=== PATIENT | male | born 1955 | race African-American/Black ===

== ENCOUNTER 2017-01-10 18:46 | Emergency (ER) | payer MEDICARE ==
[~2017-01-10] VITALS: Ht 170.2 cm; Wt 113.4 kg
[2017-01-10] MEDS ORDERED: ASPIRIN 325 MG TABLET PO ONE (19:15)
[2017-01-10] MEDS ORDERED: FAMOTIDINE 20 MG TABLET. PO ONE (19:30)
[2017-01-10] MEDS ORDERED: LIDO:MAALOX:DONNATAL 1:1:1 15 ML SINGLE DOSE SWSW ONE (19:30)
[2017-01-10 19:33] LABS: BASO # 0.1 x10^3/uL (0.0-0.2); BASO % 1 % (0-3); EOS % 3 % (0-3); HEMATOCRIT 43.7 % (39.0-53.0); HEMOGLOBIN 14.8 g/dL (13.0-17.5); LYMPH # 2.7 x10^3/uL (1.0-4.8); LYMPH % 37 % (24-48); MEAN CORPUSCULAR HEMOGLOBIN 30 pg (25-35); MEAN CORPUSCULAR HGB CONC 34 g/dL (31-37); MEAN CORPUSCULAR VOLUME 89 fL (79-100); MONO % 11 % (0-9); NEUT % 48 % (31-73); PLATELET COUNT 240 x10^3/uL (140-400); RED CELL DISTRIBUTION WIDTH 13.8 % (11.5-14.5); WHITE BLOOD COUNT 7.1 x10^3/uL (4.0-11.0)
[2017-01-10 19:52] LABS: CALCIUM 8.8 mg/dL (8.5-10.1); CREATININE 1.5 mg/dL (0.7-1.3); GFR 57.6; POTASSIUM 3.3 mmol/L (3.5-5.1)
[2017-01-10 20:00] LABS: BARBITURATES NEG (NEG); BENZODIAZEPINES NEG (NEG); CANNABINOIDS NEG (NEG); COCAINE NEG (NEG); METHADONE NEG (NEG); OPIATES NEG (NEG); PHENCYCLIDINE NEG (NEG)
[2017-01-10 20:11] LABS: ETHANOL, URINE NEG (NEG)
--- NOTE | 2017-01-10 20:22 | PHYS DOC ---
Past Medical History Past Medical History: CAD, High Cholesterol, Hypertension, [place], Other Additional Past Medical Histor: back pain Past Surgical History: Cervical Fusion, Knee Replacement, Lumbar Laminectomy Additional Past Surgical Histo: stent placement Alcohol Use: None Drug Use: None Adult General Chief Complaint Chief Complaint: CHEST PAIN HPI HPI Patient is a 61 year old male who presents with for 3 days of central chest and epigastric pain, starting at rest, constant, nonradiating. Feels slight abdominal bloating also. No aggravating or alleviating factors. Has tried tums with minimal to no relief. Thought this was acid reflux, but then states this feels similar to when he needed a cardiac stent years ago after a stress test. He denies n/v, f/c, cough, dyspnea, palpitations, diaphoresis, bloody or dark stools, exertional symptoms, orthopnea, lightheadedness, back pain. Review of Systems Review of Systems Constitutional: Denies fever or chills [] Eyes: Denies change in visual acuity, redness, or eye pain [] HENT: Denies nasal congestion or sore throat [] Respiratory: Denies cough or shortness of breath [] Cardiovascular: No additional information not addressed in HPI [] GI: Denies nausea, vomiting, bloody stools or diarrhea [] : Denies dysuria or hematuria [] Musculoskeletal: Denies back pain or joint pain [] Integument: Denies rash or skin lesions [] Neurologic: Denies headache, focal weakness or sensory changes [] Endocrine: Denies polyuria or polydipsia [] Current Medications Current Medications Current Medications Medications (Trade) Dose Ordered Sig/[facility] Start Time Stop Time Status Last Admin Dose Admin Aspirin (Leo Aspirin) 325 mg 1X ONCE 01/10/17 19:15 01/10/17 19:21 DC Famotidine (Pepcid) 20 mg 1X ONCE 01/10/17 19:30 01/10/17 19:31 DC 01/10/17 19:27 20 MG Multi-Ingredient Mouthwash/Gargle (Gi Cocktail Single Dose) 15 ml 1X ONCE 01/10/17 19:30 01/10/17 19:31 DC 01/10/17 19:27 15 ML Allergies Allergies Allergies Coded Allergies Type Severity Reaction Last Updated Verified hydrocodone Allergy Intermediate Rash 11/09/14 Yes tramadol Allergy Intermediate Rash 11/09/14 Yes Physical Exam Physical Exam Constitutional: Well developed, well nourished, no acute distress, non-toxic appearance. [] HENT: Normocephalic, atraumatic, bilateral external ears normal, oropharynx moist, nose normal. [] Eyes: PERRLA, EOMI. [] Neck: Normal range of motion, supple. [] Cardiovascular:Heart rate regular rhythm [] Lungs & Thorax: Bilateral breath sounds clear to auscultation. No chest wall pain or rash [] Abdomen: Bowel sounds normal, soft, no tenderness. [] Skin: Warm, dry, no erythema, no rash. [] Back: No tenderness, no CVA tenderness. [] Extremities: No tenderness, ROM intact, no edema. [] Neurologic: Alert and oriented X 3, normal motor function, normal sensory function, no focal deficits noted. [] Psychologic: Affect normal, judgement normal, mood normal. [] Current Patient Data Vital Signs Vital Signs Date Time Temp Pulse Resp B/P Pulse Ox O2 Delivery O2 Flow Rate FiO2 01/10/17 18:53 98.5 71 20 165/96 96 Room Air 98.5 Lab Values Laboratory Tests Test 01/10/17 19:07 01/10/17 19:40 White Blood Count 7.1x10^3/uL (4.0-11.0) Red Blood Count 4.90x10^6/uL (4.30-5.70) Hemoglobin 14.8g/dL (13.0-17.5) Hematocrit 43.7% (39.0-53.0) Mean Corpuscular Volume 89fL (79-100) Mean Corpuscular Hemoglobin 30pg (25-35) Mean Corpuscular Hemoglobin Concent 34g/dL (31-37) Red Cell Distribution Width 13.8% (11.5-14.5) Platelet Count 240x10^3/uL (140-400) Neutrophils (%) (Auto) 48% (31-73) Lymphocytes (%) (Auto) 37% (24-48) Monocytes (%) (Auto) 11% (0-9) H Eosinophils (%) (Auto) 3% (0-3) Basophils (%) (Auto) 1% (0-3) Neutrophils # (Auto) 3.4x10^3uL (1.8-7.7) Lymphocytes # (Auto) 2.7x10^3/uL (1.0-4.8) Monocytes # (Auto) 0.8x10^3/uL (0.0-1.1) Eosinophils # (Auto) 0.2x10^3/uL (0.0-0.7) Basophils # (Auto) 0.1x10^3/uL (0.0-0.2) Sodium Level 143mmol/L (136-145) Potassium Level 3.3mmol/L (3.5-5.1) L Chloride Level 105mmol/L (98-107) Carbon Dioxide Level 29mmol/L (21-32) Anion Gap 9 (6-14) Blood Urea Nitrogen 17mg/dL (8-26) Creatinine 1.5mg/dL (0.7-1.3) H Estimated GFR (Cockcroft-Gault) 57.6 Glucose Level 149mg/dL (70-99) H Calcium Level 8.8mg/dL (8.5-10.1) Troponin I Quantitative < 0.017ng/mL (0.000-0.055) PE-Tfc-C-Type Natriuretic Peptide 15pg/mL (0-124) Urine Opiates Screen Neg (NEG) Urine Methadone Screen Neg (NEG) Urine Barbiturates Neg (NEG) Urine Phencyclidine Screen Neg (NEG) Urine Amphetamine/Methamphetamine Neg (NEG) Urine Benzodiazepines Screen Neg (NEG) Urine Cocaine Screen Neg (NEG) Urine Cannabinoids Screen Neg (NEG) Urine Ethyl Alcohol Neg (NEG) Laboratory Tests 01/10/17 19:07 Laboratory Tests 01/10/17 19:07 EKG EKG EKG as interpreted by me as normal sinus rhythm, rate 69, no ST-T changes, P-R 128, QTc 474, no ectopy Radiology/Procedures Radiology/Procedures Chest xray as interpreted by me with no acute cardiopulmonary disease process Course & Med Decision Making Course & Med Decision Making Pertinent Labs and Imaging studies reviewed. (See chart for details) Workup is unremarkable. Will treat with antacid for possible acid reflux. Encouraged him to follow-up with cardiology and his primary care doctor in [place], [place] closely. Return precautions given. He understands and agrees plan. Dragon Disclaimer Dragon Disclaimer This electronic medical record was generated, in whole or in part, using a voice recognition dictation system. Departure Departure Impression: Primary Impression: Chest pain Disposition: HOME, SELF-CARE Condition: STABLE Referrals: SONYA BRUMFIELD (PCP) Patient Instructions: Chest Pain (Nonspecific), [id number] Additional Instructions: Take famotidine for possible acid reflux. 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 Please call for appointment. Return for any concerns. Scripts Famotidine 20 Mg [id number] Mg PO BID #30 TAB Prov:Wanda LOPEZ MD 01/10/17 Problem Qualifiers Primary Impression: Chest pain Chest pain type: unspecified Qualified Code: R07.9 - Chest pain, unspecified Wanda LOPEZ MD Jan 10, 2017 20:21
[2017-01-10] MEDS ORDERED: FAMO20TA5 PO (20:28)
[2017-01-10 20:30] VITALS: BP 140/84
--- NOTE | 2017-01-11 08:31 | EKG ---
[facility] [address] [place] [address] Test Date: 2017-01-10 Test Time: 18:54:02 Pat Name: JAMES RIVERA Department: Room: Gender: M Emergency Medical Services Coordinator: : 1955 Requested By: Wanda LOPEZ Order Number: [id number] Reading MD: Khang Patino Measurements Intervals [place] Rate: 69 P: 23 CA: 128 QRS: -28 QRSD: 116 T: 47 QT: 436 QTc: 474 Interpretive Statements SINUS RHYTHM LAFB Electronically Signed On 01-15-2017 9:46:45 CDT by Khang Patino
--- NOTE | 2017-01-11 09:26 | RAD ---
2 view CXR: Clinical indications: Mid to left-sided chest pain for 4 days. Hypertension.. Findings: No acute lung infiltrate or pleural effusion or pulmonary edema or lung mass or pneumothorax is seen. Mild cardiomegaly is evident. Tortuosity of the thoracic aorta is seen. The pulmonary vasculature and both tre are unremarkable. The osseous structures appear intact. Impression: Mild cardiomegaly. No acute lung infiltrate..
== END 2017-01-10 20:35 | disposition home or self-care (01) ==
LOC: ER 18:46
DX: R07.89 Other chest pain (principal); R10.13 Epigastric pain; R14.0 Abdominal distension (gaseous); I25.10 Atherosclerotic heart disease of native coronary artery without angina pectoris; E78.00 Pure hypercholesterolemia, unspecified; I10 Essential (primary) hypertension; I25.2 Old myocardial infarction; Z88.5 Allergy status to narcotic agent; Z95.5 Presence of coronary angioplasty implant and graft
CPT/HCPCS: 36415; 71020; 80048; 80305; 80320; 83880; 84484; 85027; 93005; G0481; 99285-25